=== PATIENT | female | born 1970 | race Caucasian/White ===

== ENCOUNTER 2017-12-22 21:24 | Emergency (ER) | payer SELFPAY ==
[~2017-12-22] VITALS: Ht 167.6 cm; Wt 74.8 kg
[2017-12-22 23:09] LABS: Basophils # (auto) 0 uL; Basophils % (auto) 0.5 % (0.0-2.0); Eosinophils # (auto) 0 uL; Eosinophils % (auto) 0.4 % (0.0-7.0); Hematocrit 35.2 % (36.0-46.0); Hemoglobin 12.3 g/dL (12.2-16.2); Lymphocytes # (auto) 0.6 uL; Lymphocytes % (auto) 9.3 % (10.0-50.0); Mean Corpuscular Hemoglobin 33.8 pg (28.0-32.0); Mean Corpuscular Hgb Conc. 34.8 g/dL (32.0-36.0); Mean Corpuscular Volume 97.2 fL (80.0-100.0); Monocytes # (auto) 0.5 uL; Monocytes % (auto) 7.8 % (0.0-12.0); Neutrophils # (auto) 5.7 uL; Nucleated Red Blood Cells % 0.1 %; Platelet Count (auto) 297 10^3/uL (140-450); Red Blood Cells 3.62 10^6/uL (4.0-5.20); Red Cell Distribution Width 13.1 % (11.8-14.3); White Blood Cell 6.9 10^3/uL (4.4-10.8)
[2017-12-22] MEDS ORDERED: SODIUM CHLORIDE 0.9% 3,000 ML IV ONE (23:15)
[2017-12-22 23:28] LABS: BUN/Creatinine Ratio 17.6; Calcium 7.5 mg/dL (8.5-10.1); Potassium 3.9 mmol/L (3.5-5.1)
[2017-12-22 23:30] LABS: Bilirubin, Total 0.3 mg/dL (0.2-1.0); Total Protein 6.5 g/dL (6.4-8.2)
[2017-12-23 05:55] VITALS: BP 132/74
== END 2017-12-23 06:13 | disposition home or self-care (01) ==
LOC: ER 21:24 → EDBD 21:24 → ER 12-23 06:13
DX: R41.82 Altered mental status, unspecified (principal); F10.120 Alcohol abuse with intoxication, uncomplicated; Z59.0 Homelessness
CPT/HCPCS: 36415; 80053; 80320; 85025; 96360

== ENCOUNTER 2017-12-23 09:16 | Emergency (ER) | payer SELFPAY ==
[~2017-12-23] VITALS: Ht 165.1 cm; Wt 68.0 kg
[2017-12-23 09:33] VITALS: BP 120/87
== END 2017-12-23 10:31 | disposition home or self-care (01) ==
LOC: ER 09:16
DX: R51 Headache (principal); F10.10 Alcohol abuse, uncomplicated; Z59.0 Homelessness